=== PATIENT | male | born 1960 | race African-American/Black ===

== ENCOUNTER 2020-05-23 18:57 | Inpatient (IN) | payer MEDICAID ==
[~2020-05-23] VITALS: Ht 193 cm; Wt 99.9 kg
[2020-05-23 20:11] LABS: BASOPHILS % 0.1 % (0.0-2.0); EOSINOPHILS % 0.5 % (0.0-5.0); HEMATOCRIT. 25.9 % (42.0-52.0); HEMOGLOBIN. 8.3 g/dL (14.0-18.0); LYMPHOCYTES % 8.2 % (20.0-50.0); MEAN CORPUSCULAR HEMOGLOBIN 23.5 pg (28.0-32.0); MEAN CORPUSCULAR VOLUME 73.2 fL (80.0-94.0); MEAN PLATELET VOLUME 8.2 fl (7.4-10.4); MONOCYTES % 10.1 % (2.0-8.0); NEUTROPHILS % 81.1 % (40.0-76.0); PLATELET 353 x1000/uL (130-400); RED BLOOD CELL COUNT 3.54 mill/uL (4.7-6.1)
[2020-05-23 20:13] LABS: CHLORIDE 92 mEq/L (98-107)
[2020-05-23 23:00] VITALS: BP 96/51
[2020-05-24 00:08] VITALS: BP 95/54
[2020-05-24] MEDS ORDERED: MORPHINE SULFATE 2 MG/ML CPJ (NOT FOR IM USE) IV PRN (00:30)
[2020-05-24] MEDS ORDERED: DEXTROSE 50% WATER 50ML SYRINGE IV PRN (00:30)
[2020-05-24] MEDS: HYDROCODONE/ACETAMINOPHEN 5/325MG TABLET PO PRN ×4 (01:29→22:28)
[2020-05-24 04:00] VITALS: BP 105/58
[2020-05-24 06:19] LABS: CHLORIDE 92 mEq/L (98-107)
[2020-05-24 06:29] LABS: BASOPHILS % 0.3 % (0.0-2.0); EOSINOPHILS % 0.4 % (0.0-5.0); HEMATOCRIT. 25.6 % (42.0-52.0); HEMOGLOBIN. 8.4 g/dL (14.0-18.0); LYMPHOCYTES % 14.9 % (20.0-50.0); MEAN CORPUSCULAR VOLUME 72.9 fL (80.0-94.0); MEAN PLATELET VOLUME 8.3 fl (7.4-10.4); MONOCYTES % 12.3 % (2.0-8.0); NEUTROPHILS % 72.1 % (40.0-76.0); PLATELET 373 x1000/uL (130-400); RED BLOOD CELL COUNT 3.51 mill/uL (4.7-6.1); RED CELL DISTRIBUTION WIDTH 19.3 % (11.6-14.6)
[2020-05-24] MEDS: BLOOD SUGAR DIAGNOSTIC STRIP TEST SCH ×4 (07:20→21:00)
[2020-05-24] MEDS: INSULIN LISPRO 100 UNITS/ML SUBCUT SCH ×4 (07:50→21:00)
[2020-05-24 08:00] VITALS: BP 91/54
[2020-05-24] MEDS ORDERED: METOPROLOL TARTRATE 25MG TABLET PO SCH (09:00)
[2020-05-24] MEDS ORDERED: ASPIRIN 325MG TABLET PO SCH (09:00)
[2020-05-24] MEDS: SEVELAMER CARBONATE 800 MG TABLET PO SCH ×3 (09:05→18:22)
[2020-05-24] MEDS: FOLIC ACID/VITAMIN B COMP W-C TABLET PO SCH (09:05)
[2020-05-24] MEDS: ONDANSETRON HCL 4MG/2ML INJ IV PRN ×3 (10:08→22:27)
[2020-05-24 12:00] VITALS: BP 98/57
[2020-05-24] MEDS: OMEPRAZOLE 20MG CAPSULE EXTENDED RELEASE PO SCH (15:26)
[2020-05-24 16:00] VITALS: BP 105/63
[2020-05-24 20:25] VITALS: BP 93/56
[2020-05-25 00:32] VITALS: BP 98/57
[2020-05-25] MEDS: HYDROCODONE/ACETAMINOPHEN 5/325MG TABLET PO PRN ×3 (03:06→20:42)
[2020-05-25 06:31] LABS: CHLORIDE 94 mEq/L (98-107)
[2020-05-25] MEDS: OMEPRAZOLE 20MG CAPSULE EXTENDED RELEASE PO SCH (06:41)
[2020-05-25] MEDS: BLOOD SUGAR DIAGNOSTIC STRIP TEST SCH ×4 (06:42→20:42)
[2020-05-25 06:52] LABS: BASOPHILS % 0.2 % (0.0-2.0); EOSINOPHILS % 0.8 % (0.0-5.0); HEMATOCRIT. 26.1 % (42.0-52.0); HEMOGLOBIN. 8.3 g/dL (14.0-18.0); LYMPHOCYTES % 14.2 % (20.0-50.0); MEAN CORPUSCULAR HEMOGLOBIN 23.3 pg (28.0-32.0); MEAN CORPUSCULAR VOLUME 73.6 fL (80.0-94.0); MEAN PLATELET VOLUME 8.2 fl (7.4-10.4); MONOCYTES % 13.5 % (2.0-8.0); NEUTROPHILS % 71.3 % (40.0-76.0); PLATELET 373 x1000/uL (130-400); RED BLOOD CELL COUNT 3.55 mill/uL (4.7-6.1); RED CELL DISTRIBUTION WIDTH 19.6 % (11.6-14.6)
[2020-05-25] MEDS: INSULIN LISPRO 100 UNITS/ML SUBCUT SCH ×4 (07:50→20:42)
[2020-05-25 08:00] VITALS: BP 112/72
[2020-05-25] MEDS ORDERED: METOPROLOL TARTRATE 25MG TABLET PO SCH (09:00)
[2020-05-25] MEDS: SEVELAMER CARBONATE 800 MG TABLET PO SCH ×3 (09:07→18:12)
[2020-05-25] MEDS: FOLIC ACID/VITAMIN B COMP W-C TABLET PO SCH (09:07)
[2020-05-25] MEDS: ONDANSETRON HCL 4MG/2ML INJ IV PRN ×2 (09:08→20:42)
[2020-05-25 12:00] VITALS: BP 88/70
[2020-05-25] MEDS ORDERED: ALTEPLASE 2MG/VIAL ITC SCH (14:00)
[2020-05-25] MEDS ORDERED: ALBUMIN HUMAN 25GM/100ML (25%) IV SCH (14:00)
[2020-05-25] MEDS: MIDODRINE HCL 2.5MG TABLET PO SCH ×2 (15:05→17:16)
[2020-05-25 16:00] VITALS: BP 84/72
[2020-05-25 17:44] VITALS: BP 85/69
[2020-05-25 20:33] VITALS: BP 101/60
[2020-05-26 00:26] VITALS: BP 86/46
[2020-05-26 03:00] VITALS: BP 98/60
[2020-05-26] MEDS: HYDROCODONE/ACETAMINOPHEN 5/325MG TABLET PO PRN ×3 (03:06→21:21)
[2020-05-26] MEDS: OMEPRAZOLE 20MG CAPSULE EXTENDED RELEASE PO SCH (06:28)
[2020-05-26 07:00] LABS: BASOPHILS % 0.4 % (0.0-2.0); EOSINOPHILS % 0.8 % (0.0-5.0); HEMATOCRIT. 26.2 % (42.0-52.0); HEMOGLOBIN. 8.4 g/dL (14.0-18.0); LYMPHOCYTES % 12.2 % (20.0-50.0); MEAN CORPUSCULAR HEMOGLOBIN 23.7 pg (28.0-32.0); MEAN CORPUSCULAR VOLUME 74.2 fL (80.0-94.0); MEAN PLATELET VOLUME 8.3 fl (7.4-10.4); MONOCYTES % 8.7 % (2.0-8.0); NEUTROPHILS % 77.9 % (40.0-76.0); PLATELET 388 x1000/uL (130-400); RED BLOOD CELL COUNT 3.54 mill/uL (4.7-6.1); RED CELL DISTRIBUTION WIDTH 19.2 % (11.6-14.6)
[2020-05-26] MEDS: INSULIN LISPRO 100 UNITS/ML SUBCUT SCH ×4 (07:00→21:00)
[2020-05-26] MEDS: BLOOD SUGAR DIAGNOSTIC STRIP TEST SCH ×4 (07:00→21:00)
[2020-05-26 07:06] LABS: CHLORIDE 94 mEq/L (98-107)
[2020-05-26 08:00] VITALS: BP 106/52
[2020-05-26] MEDS: SEVELAMER CARBONATE 800 MG TABLET PO SCH ×3 (09:53→17:47)
[2020-05-26] MEDS: FOLIC ACID/VITAMIN B COMP W-C TABLET PO SCH (09:53)
[2020-05-26] MEDS: MIDODRINE HCL 2.5MG TABLET PO SCH ×3 (09:55→17:48)
[2020-05-26] MEDS: ONDANSETRON HCL 4MG/2ML INJ IV PRN (10:22)
[2020-05-26 12:07] VITALS: BP 107/65
[2020-05-26] MEDS ORDERED: GABA-531 MT (14:21)
[2020-05-26] MEDS ORDERED: HYDR-3280 MT (14:21)
[2020-05-26] MEDS ORDERED: MIDO2.5T MT (14:21)
[2020-05-26] MEDS ORDERED: VANCOMYCIN 1500MG in DEXTROSE 5% WATER 250ML IV SCH (15:00)
[2020-05-26 15:04] LABS: INR 1.1; PROTHROMBIN TIME 11.3 sec (9.6-11.0)
[2020-05-26 16:00] VITALS: BP 103/52
[2020-05-26 20:23] VITALS: BP 130/69
[2020-05-26] MEDS ORDERED: MORPHINE SULFATE 2 MG/ML CPJ (NOT FOR IM USE) IV NR (23:00)
[2020-05-27] VITALS: BP 123/70
[2020-05-27] MEDS: HYDROCODONE/ACETAMINOPHEN 5/325MG TABLET PO PRN ×4 (03:30→21:04)
[2020-05-27 04:00] VITALS: BP 114/69
[2020-05-27] MEDS: OMEPRAZOLE 20MG CAPSULE EXTENDED RELEASE PO SCH (06:27)
[2020-05-27] MEDS: BLOOD SUGAR DIAGNOSTIC STRIP TEST SCH ×4 (06:29→20:35)
[2020-05-27] MEDS: INSULIN LISPRO 100 UNITS/ML SUBCUT SCH ×4 (06:30→20:35)
[2020-05-27 08:00] VITALS: BP 94/50
[2020-05-27] MEDS: FOLIC ACID/VITAMIN B COMP W-C TABLET PO SCH (09:03)
[2020-05-27] MEDS: SEVELAMER CARBONATE 800 MG TABLET PO SCH ×3 (09:03→17:50)
[2020-05-27] MEDS: MIDODRINE HCL 2.5MG TABLET PO SCH (09:04)
[2020-05-27] MEDS ORDERED: MORPHINE SULFATE 2 MG/ML CPJ (NOT FOR IM USE) IV NR ×2 (10:50→22:04)
[2020-05-27] MEDS ORDERED: LIDOCAINE HCL 1% 20ML VIAL (Pyxis) INJ ONE (11:10)
[2020-05-27] MEDS ORDERED: SODIUM BICARBONATE 4% (2.4MEQ) 5ML VIAL IV ONE (11:10)
[2020-05-27] MEDS ORDERED: HEPARIN 1000 UNITS/ML 10ML ONE (11:10)
[2020-05-27 12:00] VITALS: BP 97/59
[2020-05-27] MEDS: MIDODRINE HCL 5MG TABLET PO SCH ×4 (13:26→23:49)
[2020-05-27 16:00] VITALS: BP 99/61
[2020-05-27 16:03] LABS: BASOPHILS % 0.3 % (0.0-2.0); EOSINOPHILS % 1.7 % (0.0-5.0); HEMATOCRIT. 26.7 % (42.0-52.0); HEMOGLOBIN. 8.6 g/dL (14.0-18.0); LYMPHOCYTES % 17.2 % (20.0-50.0); MEAN CORPUSCULAR HEMOGLOBIN 23.8 pg (28.0-32.0); MEAN CORPUSCULAR VOLUME 73.9 fL (80.0-94.0); MEAN PLATELET VOLUME 8.1 fl (7.4-10.4); MONOCYTES % 9.5 % (2.0-8.0); NEUTROPHILS % 71.3 % (40.0-76.0); PLATELET 420 x1000/uL (130-400); RED BLOOD CELL COUNT 3.61 mill/uL (4.7-6.1)
[2020-05-27 20:00] VITALS: BP 85/57
[2020-05-28 00:30] VITALS: BP 98/67
[2020-05-28 04:00] VITALS: BP 107/56
[2020-05-28] MEDS: BLOOD SUGAR DIAGNOSTIC STRIP TEST SCH ×5 (06:53→21:00)
[2020-05-28] MEDS: OMEPRAZOLE 20MG CAPSULE EXTENDED RELEASE PO SCH (06:53)
[2020-05-28 07:20] LABS: BASOPHILS % 0.6 % (0.0-2.0); EOSINOPHILS % 1.1 % (0.0-5.0); HEMATOCRIT. 25.8 % (42.0-52.0); HEMOGLOBIN. 8.4 g/dL (14.0-18.0); LYMPHOCYTES % 18.2 % (20.0-50.0); MEAN CORPUSCULAR HEMOGLOBIN 23.9 pg (28.0-32.0); MEAN CORPUSCULAR VOLUME 73.1 fL (80.0-94.0); MEAN PLATELET VOLUME 7.9 fl (7.4-10.4); MONOCYTES % 7.9 % (2.0-8.0); NEUTROPHILS % 72.2 % (40.0-76.0); PLATELET 368 x1000/uL (130-400); RED BLOOD CELL COUNT 3.53 mill/uL (4.7-6.1); RED CELL DISTRIBUTION WIDTH 18.8 % (11.6-14.6)
[2020-05-28] MEDS: INSULIN LISPRO 100 UNITS/ML SUBCUT SCH ×4 (07:50→21:00)
[2020-05-28 08:00] VITALS: BP 93/56
[2020-05-28] MEDS: SEVELAMER CARBONATE 800 MG TABLET PO SCH ×3 (09:28→17:57)
[2020-05-28] MEDS: FOLIC ACID/VITAMIN B COMP W-C TABLET PO SCH (09:28)
[2020-05-28] MEDS: MIDODRINE HCL 5MG TABLET PO SCH ×3 (09:28→17:58)
[2020-05-28] MEDS: HYDROCODONE/ACETAMINOPHEN 5/325MG TABLET PO PRN ×2 (09:47→20:31)
[2020-05-28 12:00] VITALS: BP 101/55
[2020-05-28 16:00] VITALS: BP 117/60
[2020-05-28 20:19] VITALS: BP 92/50
[2020-05-28] MEDS: GABAPENTIN 300MG CAPSULE PO SCH (23:17)
[2020-05-29 00:38] VITALS: BP 94/55
[2020-05-29] MEDS ORDERED: HEPARIN SODIUM 1,000 UNIT/1ML VIAL IV NR (01:30)
[2020-05-29] MEDS: GABAPENTIN 300MG CAPSULE PO SCH ×3 (06:29→21:28)
[2020-05-29] MEDS: BLOOD SUGAR DIAGNOSTIC STRIP TEST SCH ×4 (06:30→20:06)
[2020-05-29 07:19] LABS: BASOPHILS % 1.1 % (0.0-2.0); EOSINOPHILS % 1.6 % (0.0-5.0); HEMATOCRIT. 24.5 % (42.0-52.0); HEMOGLOBIN. 7.8 g/dL (14.0-18.0); MEAN CORPUSCULAR HEMOGLOBIN 23.7 pg (28.0-32.0); MEAN CORPUSCULAR VOLUME 73.9 fL (80.0-94.0); MONOCYTES % 7.4 % (2.0-8.0); NEUTROPHILS % 70.9 % (40.0-76.0); PLATELET 377 x1000/uL (130-400); RED BLOOD CELL COUNT 3.31 mill/uL (4.7-6.1); RED CELL DISTRIBUTION WIDTH 18.9 % (11.6-14.6)
[2020-05-29] MEDS: INSULIN LISPRO 100 UNITS/ML SUBCUT SCH ×4 (07:50→20:06)
[2020-05-29 08:29] VITALS: BP 106/67
[2020-05-29] MEDS: MIDODRINE HCL 5MG TABLET PO SCH ×3 (09:37→17:02)
[2020-05-29] MEDS: FAMOTIDINE 20MG TABLET PO SCH (09:37)
[2020-05-29] MEDS: FOLIC ACID/VITAMIN B COMP W-C TABLET PO SCH (09:37)
[2020-05-29] MEDS: HYDROCODONE/ACETAMINOPHEN 5/325MG TABLET PO PRN ×3 (09:38→21:35)
[2020-05-29] MEDS: SEVELAMER CARBONATE 800 MG TABLET PO SCH ×3 (09:38→17:02)
[2020-05-29 12:00] VITALS: BP 91/61
[2020-05-29 16:00] VITALS: BP 95/44
[2020-05-29 20:14] VITALS: BP 91/57
[2020-05-30 00:42] VITALS: BP 123/66
[2020-05-30] MEDS: GABAPENTIN 300MG CAPSULE PO SCH ×2 (05:10→14:02)
[2020-05-30] MEDS: HYDROCODONE/ACETAMINOPHEN 5/325MG TABLET PO PRN ×2 (05:10→10:39)
[2020-05-30 06:28] LABS: BASOPHILS % 0.8 % (0.0-2.0); EOSINOPHILS % 2.5 % (0.0-5.0); HEMATOCRIT. 24.1 % (42.0-52.0); HEMOGLOBIN. 7.6 g/dL (14.0-18.0); LYMPHOCYTES % 21.2 % (20.0-50.0); MEAN CORPUSCULAR HEMOGLOBIN 23.7 pg (28.0-32.0); MEAN CORPUSCULAR VOLUME 75.1 fL (80.0-94.0); MEAN PLATELET VOLUME 7.8 fl (7.4-10.4); MONOCYTES % 12.5 % (2.0-8.0); PLATELET 360 x1000/uL (130-400); RED BLOOD CELL COUNT 3.21 mill/uL (4.7-6.1); RED CELL DISTRIBUTION WIDTH 18.9 % (11.6-14.6)
[2020-05-30] MEDS: BLOOD SUGAR DIAGNOSTIC STRIP TEST SCH ×3 (07:25→17:20)
[2020-05-30] MEDS: INSULIN LISPRO 100 UNITS/ML SUBCUT SCH ×3 (07:50→17:50)
[2020-05-30 08:00] VITALS: BP 99/55
[2020-05-30] MEDS: MIDODRINE HCL 5MG TABLET PO SCH ×3 (08:21→17:00)
[2020-05-30] MEDS: SEVELAMER CARBONATE 800 MG TABLET PO SCH ×3 (08:21→17:50)
[2020-05-30] MEDS: FOLIC ACID/VITAMIN B COMP W-C TABLET PO SCH (08:21)
[2020-05-30] MEDS: FAMOTIDINE 20MG TABLET PO SCH (08:21)
[2020-05-30 12:00] VITALS: BP 134/50
[2020-05-30] MEDS ORDERED: HEPARIN SODIUM 1,000 UNIT/1ML VIAL IV NR (13:15)
[2020-05-30] MEDS ORDERED: VANCOMYCIN 1 G PREMIX 200 ML IV SCH (14:00)
[2020-05-30 14:52] VITALS: BP 117/50
[2020-05-30 16:00] VITALS: BP 99/53
== END 2020-05-30 19:11 | DRG 711 ==
LOC: ER 18:57 → 6WST 20:16 → EDBEDREQ 20:18 → EDBEDREQTM 20:18 → ENRESERV 21:04 → ER 22:43
PROVIDERS: ADMIT Internal Medicine; ATTEND Internal Medicine
PROC: 5A1D70Z Performance of Urinary Filtration, Intermittent, Less than 6 Hours Per Day (ICD-10-PCS; 2020-05-25)
PROC: 0KBP0ZZ Excision of Left Hip Muscle, Open Approach (ICD-10-PCS; principal; 2020-05-26)
PROC: 0JPT3XZ Removal of Tunneled Vascular Access Device from Trunk Subcutaneous Tissue and Fascia, Percutaneous Approach (ICD-10-PCS; 2020-05-26)
PROC: 05PYX3Z Removal of Infusion Device from Upper Vein, External Approach (ICD-10-PCS; 2020-05-26)
PROC: 5A1D70Z Performance of Urinary Filtration, Intermittent, Less than 6 Hours Per Day (ICD-10-PCS; 2020-05-27)
PROC: B518ZZA Fluoroscopy of Superior Vena Cava, Guidance (ICD-10-PCS; 2020-05-27)
PROC: 02HV33Z Insertion of Infusion Device into Superior Vena Cava, Percutaneous Approach (ICD-10-PCS; 2020-05-27)
PROC: B548ZZA Ultrasonography of Superior Vena Cava, Guidance (ICD-10-PCS; 2020-05-27)
PROC: 5A1D70Z Performance of Urinary Filtration, Intermittent, Less than 6 Hours Per Day (ICD-10-PCS; 2020-05-28)
PROC: 5A1D70Z Performance of Urinary Filtration, Intermittent, Less than 6 Hours Per Day (ICD-10-PCS; 2020-05-30)
DX: T80.211A Bloodstream infection due to central venous catheter, initial encounter (principal); A41.02 Sepsis due to Methicillin resistant Staphylococcus aureus; I95.3 Hypotension of hemodialysis; N18.6 End stage renal disease; E43 Unspecified severe protein-calorie malnutrition; E87.8 Other disorders of electrolyte and fluid balance, not elsewhere classified; D63.8 Anemia in other chronic diseases classified elsewhere; E87.1 Hypo-osmolality and hyponatremia; E87.6 Hypokalemia; R07.9 Chest pain, unspecified; L89.324 Pressure ulcer of left buttock, stage 4; E11.22 Type 2 diabetes mellitus with diabetic chronic kidney disease; R65.21 Severe sepsis with septic shock; Y84.8 Other medical procedures as the cause of abnormal reaction of the patient, or of later complication, without mention of misadventure at the time of the procedure; E78.5 Hyperlipidemia, unspecified; G82.20 Paraplegia, unspecified; I13.11 Hypertensive heart and chronic kidney disease without heart failure, with stage 5 chronic kidney disease, or end stage renal disease; Z86.19 Personal history of other infectious and parasitic diseases; Z99.2 Dependence on renal dialysis; Y92.89 Other specified places as the place of occurrence of the external cause; Z90.5 Acquired absence of kidney; Z68.26 Body mass index [BMI] 26.0-26.9, adult
CPT/HCPCS: 36415; 36589; 71045; 76937; 77001; 80048; 80053; 80061; 80202; 82040; 82533; 82962; 83036; 83930; 84134; 84145; 84443; 84484; 85025; 87070; 87077; 93005; 93306; 99285; C1752; C1887; J1644; J2270; J2405; J2997; J3370; J3490; J7060; P9047